=== PATIENT | female | born 1990 | race Caucasian/White ===

== ENCOUNTER 2017-02-06 18:14 | Emergency (ER) | payer OTHER ==
[~2017-02-06] VITALS: Ht 157.5 cm; Wt 90.9 kg
[~2017-02-06 18:14] MED LIST: LEVO1TAB59 PO; PANT40TA3 PO
[2017-02-06 18:16] VITALS: PULSE 140; RESP 22; O2SAT 99
--- NOTE | 2017-02-06 18:33 | ED.REPORT ---
HPI-General Illness Date of Service Feb 06, 2017 ED Provider: Richard Ghotra MD A 26 year old female with a history of pancreatitis presents to the ED from Urgent Care with intermittent substernal chest pain onset yesterday morning. Associated symptoms include intermittent palpitations (hr up to 140), diaphoresis, chills, nausea, vomiting, diarrhea, and skin flushing. She was found to have a fever of 37.9 at . The patient denies lightheadedness, hematochezia, cough, or other symptoms. She is on hormonal control. Nursing Notes Stated Complaint: CHEST PAIN/SENT FROM URGENT CARE Chief Complaint: Chest Pain Nursing Notes Reviewed: Yes Allergies: Coded Allergies: No Known Allergies (Verified , 03/21/16) Scheduled Levonorgestrel/Ethinyl Estradiol (Chateal) 1 Each Tablet 1 TABLET PO DAILY Pantoprazole DR (Pantoprazole DR) 40 Mg Tablet.dr 40 MG PO DAILYAC Scheduled PRN Ondansetron ODT (Zofran ODT) 4 Mg Tablet 4 MG PO Q4H PRN PRN For Nausea General Time Seen by MD: 18:30 Chief Complaint Chest pain Hx Obtained From: Patient Arrived By: Walk-in Onset Occurred: Yesterday (Morning) Symptom Duration: Intermittent Location: : Chest Quality: Painful Severity: Current: Moderate Severity: Maximum: Moderate Associated with: Reports: Fever, Nausea, Vomiting Pertinent Negative: Relieved by nothing Recent Healthcare: Recent doctor visit Past Medical History Past Medical History Arthritis Pancreatitis Past Surgical History 1. Cholecystectomy 2. C section Family History No family history of gastrointestinal illness. No history of cancer. Hypertension in grandparents. Smoking History Never Smoker Social History Alcohol Use: Denies alcohol use Drug Use: Denies drug use Ambulatory Status Independent Review of Systems + Skin flushing Full Review of Systems Constitutional: Reports: Chills, Fever (37.9 at Urgent Care) Respiratory: Denies: Non-productive cough, Shortness of breath Cardiovascular: Reports: Chest pain (Intermittent, substernal), Palpitations ( Intermittent, hr up to 140) GI: Reports: Diarrhea, Nausea, Vomiting, Denies: Hematochezia Skin: Reports Diaphoresis Neurologic: Denies: Lightheaded Complete sys rev & neg: except as marked. Physical Exam Vital Signs Vital Signs Date Time Temp Pulse Resp B/P Pulse Ox O2 Delivery O2 Flow Rate FiO2 02/06/17 22:21 36.7 101 21 141/85 97 Room Air 02/06/17 21:09 36.8 101 19 134/70 100 Room Air 02/06/17 18:37 141/78 02/06/17 18:16 35.8 140 22 99 Room Air Initial VS: Reviewed Skin: Warm, Dry Neurologic: Alert, Oriented Psychiatric: Mood/affect normal, Behavior normal General/Constitutional: Awake, Alert Head / Eyes: Atraumatic, Normocephalic ENT: Airway patent, Mucous membranes moist Neck: Non-tender, Thyroid NL Respiratory / Chest: Breath sounds NL, Breath sounds = bilat, No respiratory distress Cardiovascular: Regular rhythm, Heart sounds NL, No gallop, No murmurs, No rubs Heart Rate / Rhythm: Positive: Tachycardia Interpretation & Diagnostics Interpretation & Diagnostics: URINE TEST: Negative Lab Results Interpretation Result Diagram: 02/06/17182902/06/17 1830 Test 02/06/17 18:30 02/06/17 19:12 02/06/17 21:12 White Blood Count 6.2th/mm3 (3.8-10.1) Red Blood Count 5.12mil/mm3 (3.90-5.20) Hemoglobin 14.7g/dL (12.0-15.6) Hematocrit 44.3% (35.0-46.0) Mean Corpuscular Volume 86.5fL (81-100) Mean Corpuscular Hemoglobin 28.7pg (27.0-35.0) Mean Corpuscular Hemoglobin Concent 33.2% (32.0-37.0) Red Cell Distribution Width 13.1% (12.3-15.4) Platelet Count 250bil/L (150-400) Neutrophils (%) (Auto) 83.8% (40-74) Lymphocytes (%) (Auto) 11.6% (14-46) Monocytes (%) (Auto) 3.9% (4-12) Eosinophils (%) (Auto) 0.3% (0-5) Basophils (%) (Auto) 0.2% (0-3) D-Dimer 2.27mg/L FEU (<0.50) Sodium Level 131mEq/L (134-144) Potassium Level 3.8mEq/L (3.5-5.2) Chloride Level 95mEq/L (97-108) Carbon Dioxide Level 16mmol/L (18-29) Blood Urea Nitrogen 7mg/dL (6-20) Creatinine 0.53mg/dL (0.57-1.00) Estimat Glomerular Filtration Rate 197mL/min (>59) Glucose Level 109mg/dL (60-99) Calcium Level 9.4mg/dL (8.5-10.1) Magnesium Level 1.8mg/dL (1.6-2.6) Total Bilirubin 1.1mg/dL (0.0-1.2) Aspartate Amino Transf (AST/SGOT) 38U/L (0-50) Alanine Aminotransferase (ALT/SGPT) 25U/L (0-32) Alkaline Phosphatase 68U/L (25-150) Troponin T < 0.010ug/L (0.0-0.011) Total Protein 7.5g/dL (6.4-8.4) Albumin 4.3g/dL (3.4-5.0) Thyroid Stimulating Hormone (TSH) 1.320uIU/mL (0.450-4.500) Hold Urine Received (Received) Urine Color Yellow (YELLOW) Urine Appearance Clear (CLEAR,HAZY) Urine pH 6.0 (5.0-8.0) Urine Specific [place] 1.010 (1.003-1.035) Urine Protein Negativemg/dL (NEG,TRACE) Urine Glucose (UA) Negativemg/dL (NEGATIVE) Urine Ketones 15mg/dL (NEGATIVE) Urine Occult Blood Negative (NEGATIVE) Urine Nitrite Negative (NEGATIVE) Urine Bilirubin Negative (NEGATIVE) Urine Urobilinogen Normalmg/dL (NORMAL) Urine Leukocyte Esterase Negative (NEGATIVE) Urine RBC 0-2/hpf (0-2) Urine WBC 0-5/hpf (0-5) Urine Epithelial Cells Moderate/hpf (NONE-MOD) Urine Crystals None seen (NONE SEEN) Urine Bacteria Few/hpf (NONE-FEW) Urine Hyaline Casts None/lpf (NONE) Urine Granular Casts None seen (NONE SEEN) Urine Waxy Casts None seen (NONE SEEN) Urine Red Blood Cell Casts None seen (NONE SEEN) Urine White Blood Cell Casts None seen (NONE SEEN) Urine Mucus None seen (None Seen) Urine Trichomonas None seen (NONE SEEN) Urine Yeast None (NONE SEEN) Urinalysis Comment None Urine Culture Reflexed Not indicated ECG Interpretation ECG Interpretation: Sinus tachycardia rate 133 Poor R-wave progression No ST or T-wave changes Time: 18:44 Interpreted by: ED physician X-Ray Chest Interpretation Chest Xray Interpretation: IMPRESSION: No abnormality is seen in the upright portable chest. Dictated by: Ezekiel Oliva M.D. on 02/06/2017 at 19:02 View: Portable, 1 view Interpretation / Wet Read by: Interpret - Radiologist CT Chest Interpretation IMPRESSION: 1. No evidence for pulmonary embolus. 2. Lungs are clear. Cause of chest pain is not identified. 3. Fatty changes throughout the liver. Dictated by: Ezekiel Oliva M.D. on 02/06/2017 at 21:34 Study type: CT pulm angiogram Interpretation / Wet Read by: Interpret - Radiologist Re-Eval/Medical Decision Source of Hx: Old records Time of Eval: 20:21 Patient Status: Condition improved Re-Evaluation/Progress Note: Patient rechecked. She is feeling a bit better. Discussed plan for CT. She agrees with plan for care and all questions were addressed. Time of Eval: 21:43 Patient Status: Condition improved, Drinking well without N/V Re-Evaluation/Progress Note: Discussed with patient lab, x-ray, and CT results, diagnosis, and plan for discharge. Follow-up and return to the ER instructions given. Patient agrees with plan for care and all questions were addressed. Counseled Regarding: Diagnosis, Lab results, Need for follow-up, When/why to return to ED Discharge & Departure Primary Impression: Chest pain Chest pain type: unspecified Qualified Code: R07.9 - Chest pain, unspecified Additional Impression: Gastroenteritis Disposition: Home Discharge Condition All VS Reviewed: Yes Condition: Improved Patient Instructions: Acute Nausea and Vomiting (ED), Chest Pain (ED) Additional Instructions: Emergency Department evaluation included interview, examination labs, ECG and CT angiogram of the chest. We were evaluating for a rapid heart rate and chest pain in the context of an acute illness with diarrhea and nausea and vomiting. We did not find a serious cause for rapid heart rate, pneumonia and pulmonary embolism were excluded by imaging, ECG and labs do not suggest that this is a serious heart problem. Impression is that the rapid heart rate was related to dehydration and a fever as reported in urgent care. IV fluids improved to this. May use ondansetron as needed for nausea and vomiting. If diarrhea persists, use imodium as needed. Rest and get adequate fluids. Expect gastrointestinal symptoms to improve over the next few days. Follow-up with primary care if not improved in 2 days. Return emergency Department for increasing chest pain, feeling faint, increasing abdominal pain or blood in diarrhea. Thanks for testing as with your care tonight. Referrals: Iraida Powers MD (PCP) Adele Randle Attestation Portions of this note were transcribed by Frida Vanessa. I, Dr. Ghotra, personally performed the history, physical exam, and medical decision-making; I reviewed and confirmed the accuracy of the information in the transcribed note. Signed by: Mario Barry, 02/06/2017, 22:20 copies to: Iraida Powers MD; Adele Randle Donald L MD Feb 06, 2017 18:33 FRIDA VANESSA Feb 06, 2017 19:26
[2017-02-06 18:37] VITALS: BP 141/78
[2017-02-06 18:55] LABS: BASOPHILS % (AUTO) 0.2 % (0-3); EOSINOPHILS % (AUTO) 0.3 % (0-5); MONOCYTES % (AUTO) 3.9 % (4-12); Mean Corpuscular Hemoglobin 28.7 pg (27.0-35.0); Mean Corpuscular Volume 86.5 fL (81-100); NEUTROPHILS % (AUTO) 83.8 % (40-74); Platelet Count 250 bil/L (150-400)
--- NOTE | 2017-02-06 19:03 | DRSVH ---
PROCEDURE: X-RAY CHEST ONE VIEW, PORTABLE ([id number]) INDICATIONS: CHEST PAIN TECHNIQUE: One view of the chest was acquired. COMPARISON: None. FINDINGS: Surgical changes and devices: clinical research monitor leads are seen over the chest. Lungs and pleura: No pleural effusions or pneumothorax. Lungs are clear. Mediastinum: Mediastinal contours appear normal. Heart size is normal. Bones and chest wall: No suspicious bony lesions. Overlying soft tissues appear unremarkable. IMPRESSION: No abnormality is seen in the upright portable chest. Dictated by: Ezekiel Oliva M.D. on 02/06/2017 at 19:02 Approved by: Ezekiel Oliva M.D. on 02/06/2017 at 19:02
[2017-02-06] MEDS ORDERED: 0.9% Sodium Chloride 1,000 ML IV ONE ×2 (19:05→20:25)
[2017-02-06 19:11] LABS: Magnesium 1.8 mg/dL (1.6-2.6)
[2017-02-06 19:17] LABS: TROPONIN T < 0.010 ug/L (0.0-0.011)
[2017-02-06] MEDS ORDERED: Ondansetron 8 mg ODT Tablet PO ONE (19:30)
[2017-02-06] MEDS ORDERED: Ondansetron 2 mg/mL 2 mL Inj ONE (19:43)
[2017-02-06 21:09] VITALS: BP 134/70; PULSE 101; RESP 19; O2SAT 100
[2017-02-06 21:39] LABS: COLOR,URINE YELLOW (YELLOW)
--- NOTE | 2017-02-06 21:39 | DRSVH ---
PROCEDURE: CT ANGIO CHEST PULMONARY EMBOLISM ([id number]) INDICATIONS: tachycardia elevated dimer chest pain TECHNIQUE: After the administration of intravenous contrast, 2 mm thick sections acquired from the pulmonary api neelima to the posterior costophrenic angles. 3-dimensional maximum intensity projection (MIP) coronal a nd sagittal reformats were then acquired through the thorax. For radiation dose reduction, the follo wing was used: automated exposure control, adjustment of mA and/or kV according to patient size. COMPARISON: [facility], CR, XR CHEST 1VW (PORTABLE), 02/06/2017, 18:40. FINDINGS: Image quality: Excellent. Pulmonary arteries: Pulmonary arteries are normal in size, and demonstrate no intraluminal filling d efects to suggest central pulmonary embolism. Lungs and pleura: Lungs are clear. No pleural effusions or pneumothorax. Central and peripheral ai rways are patent. Mediastinum: Heart size is normal, without pericardial effusion. No mediastinal or hilar adenopathy . Thoracic aorta is normal in caliber and enhancement. Esophagus is normal in caliber, without hiat al hernia. Bones and chest wall: No suspicious bony lesions. Ribs and thoracic spine appear intact throughout. . No axillary or supraclavicular adenopathy. Abdomen: Visualized upper abdominal solid organs appear normal in the early arterial phase of enhanc ement. There is diffuse fatty infiltration of the liver. IMPRESSION: 1. No evidence for pulmonary embolus. 2. Lungs are clear. Cause of chest pain is not identified. 3. Fatty changes throughout the liver. Dictated by: Ezekiel Oliva M.D. on 02/06/2017 at 21:34 Approved by: Ezekiel Oliva M.D. on 02/06/2017 at 21:38
[2017-02-06 21:40] LABS: APPEARANCE,URINE CLEAR (CLEAR,HAZY); OCCULT BLOOD,URINE NEGATIVE (NEGATIVE); UROBILINOGEN,URINE NORMAL (NORMAL)
[2017-02-06] MEDS ORDERED: _Ondansetron ODT 4 mg Tablet PO PRN (21:50)
[2017-02-06] MEDS ORDERED: ONDA4TAB9 PO (21:50)
[2017-02-06 22:21] VITALS: BP 141/85; PULSE 101; RESP 21; O2SAT 97
== END 2017-02-06 22:22 | disposition home or self-care (01) ==
LOC: SED 18:14
DX: R07.9 Chest pain, unspecified (principal); K52.9 Noninfective gastroenteritis and colitis, unspecified
CPT/HCPCS: 36415; 71010; 71275; 80053; 81000; 81025; 83735; 84443; 84484; 85025; 85378; 93005; 96361; 96374; 99285; J2405; J7030; Q9967